=== PATIENT | female | born 1965 | race Caucasian/White ===

== ENCOUNTER 2017-05-14 15:20 | Emergency (ER) | payer MEDICAID ==
[~2017-05-14] VITALS: Ht 165.1 cm; Wt 83.2 kg
[2017-05-14 15:24] VITALS: BP 152/90
[2017-05-14] MEDS ORDERED: METHOCARBAMOL 750 MG TABLET ONE (15:55)
[2017-05-14] MEDS ORDERED: KETOROLAC 30 MG/1 ML ONE (15:56)
[2017-05-14] MEDS ORDERED: METHOCARBAMOL 750 MG TABLET PO ONE (16:00)
[2017-05-14] MEDS ORDERED: KETOROLAC 30 MG/1 ML IM ONE (16:00)
== END 2017-05-14 16:44 | disposition home or self-care (01) ==
LOC: ED 16:20
DX: M54.12 Radiculopathy, cervical region (principal)
CPT/HCPCS: 72050; 73110; 96372; 99284; J1885

== ENCOUNTER → 2017-06-06 | Outpatient (CLI) | payer MEDICAID | END | disposition home or self-care (01) | LOC: CFH 07:59 | PROVIDERS: ATTEND Orthopaedic Surgery Orthopaedic Surgery of the Spine | DX: M50.121 Cervical disc disorder at C4-C5 level with radiculopathy (principal); M50.122 Cervical disc disorder at C5-C6 level with radiculopathy; M50.123 Cervical disc disorder at C6-C7 level with radiculopathy; M50.11 Cervical disc disorder with radiculopathy, high cervical region; M48.03 Spinal stenosis, cervicothoracic region | CPT/HCPCS: 72141 ==